=== PATIENT | female | born 2000 | race Hispanic/Latino ===

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

== ENCOUNTER 2019-09-05 19:56 | Emergency (ER) | payer OTHER ==
--- NOTE | 2019-09-05 20:53 | RAD ---
EXAM: Single view of the chest HISTORY: Chest pain and shortness of breath COMPARISON: None FINDINGS: Single view of the chest shows a normal sized cardiomediastinal silhouette. There is no keyona dence of consolidation, mass, or pleural effusion. The bones are unremarkable IMPRESSION: No evidence of acute cardiopulmonary disease
== END 2019-09-05 21:00 | disposition home or self-care (01) ==
LOC: ERS 19:56
DX: U07.1 COVID-19 (principal)
CPT/HCPCS: 71045